=== PATIENT | male | born 1960 | race Caucasian/White ===

== ENCOUNTER 2019-03-19 18:41 | Emergency (ER) | payer MEDICARE, OTHER ==
[~2019-03-19] VITALS: Ht 167.6 cm; Wt 96.4 kg
[~2019-03-19 18:41] MED LIST: AMLO-145 PO; CITA40TA6 PO; HYDR25TA6 PO; LABE200T43 PO; LAMO100T PO; LAMO100T5 PO; LISI40TA PO; MEVA40 PO; PHEN100C PO; WARF2TAB; [UNRECOGNIZED DRUG - CODE] PO
[2019-03-19 18:54] VITALS: BP 139/90; PULSE 78; RESP 18; Ht 167.6 cm; Wt 96.4 kg
== END 2019-03-19 20:33 | disposition left against medical advice (07) ==
LOC: FTE 18:41
DX: Z53.21 Procedure and treatment not carried out due to patient leaving prior to being seen by health care provider (principal)